=== PATIENT | female | born 1980 | race Caucasian/White ===

== ENCOUNTER 2020-07-23 10:56 | Outpatient (CLI) | payer BC ==
--- NOTE | 2020-07-23 11:58 | US ---
EXAMINATION TYPE: US OB >= 14 wk fetus DATE OF EXAM: 07/23/2020 COMPARISON: None CLINICAL HISTORY: EFW/CELESTINO TECHNIQUE: Transabdominal (TA) GESTATIONAL AGE / DATING Physician Established: (39 weeks/0 days) EDC: 07/30/2020 Dates by Current Scan: (39 weeks/4 days) EDC: 07/26/2020 SURVEY IUP: Single PLACENTA: Anterior/ fundal PREVIA: No Previa CELESTINO: 18 cm Normal CERVICAL LENGTH (transabdominal: norm > 3.0cm): 3 cm BIOMETRY PRESENTATION: Vertex LIE: Longitudinal BPD: 9.4 cm 38weeks / 1 days HC: 35.7 cm 39 weeks / 4 days AC: 35.94 cm 39 weeks / 6 days FL: 7.9 cm 40 weeks / 3 days ESTIMATED WEIGHT IN GRAMS: 3944 grams ESTIMATED WEIGHT IN LBS/OZ: 8 lbs. 11 oz. WEIGHT PERCENTAGE BASED ON ESTABLISHED DATES: 88% HC/AC: 1 Normal FL/AC: 22% Normal HEART RATE: 152 bpm RHYTHM: Normal Viable IUP, measurements consistent with dates. IMPRESSION: Limited survey. Single viable intrauterine corresponding to ultrasound age 39 weeks 4 days with estimated date of delivery 07/26/2020, normal amniotic fluid index
== END 2020-07-23 11:52 | disposition home or self-care (01) ==
LOC: FBPOP 10:56
PROVIDERS: ATTEND Obstetrics & Gynecology
DX: O36.63X0 Maternal care for excessive fetal growth, third trimester, not applicable or unspecified (principal); O09.513 Supervision of elderly primigravida, third trimester; Z3A.39 39 weeks gestation of pregnancy
CPT/HCPCS: 59025; 76805

== ENCOUNTER 2020-07-24 06:00 | Inpatient (IN) | payer BC ==
[2020-07-24] MEDS ORDERED: TERBUTALINE 1 MG/ML VIAL SQ PRN (06:35)
[2020-07-24] MEDS ORDERED: METHYLERGONOVINE 0.2 MG/ML 1 ML AMP IM PRN (06:35)
[2020-07-24] MEDS ORDERED: OXYTOCIN 10 UNIT/ML 1 ML VIAL IM PRN (06:35)
[2020-07-24] MEDS ORDERED: LIDOCAINE 0.5% (PF) 5 MG/ML (50 ML SDV) SQ PRN (06:35)
[2020-07-24] MEDS ORDERED: CARBOPROST TROMETHAMINE 250 MCG/ML 1 ML AMP IM PRN (06:35)
[2020-07-24] MEDS ORDERED: OXYTOCIN 30 UNITS/500 ML NS 30 UNIT in SALINE 1 500ML.BAG IV SCH (06:45)
[2020-07-24 06:55] LABS: Basophils % (A) 1 %; Eosinophils # (A) 0.1 k/uL (0-0.7); Eosinophils % (A) 1 %; HCT 38.6 % (34.0-46.0); HGB 13.1 gm/dL (11.4-16.0); Lymphocytes # (A) 1.7 k/uL (1.0-4.8); Lymphocytes % (A) 20 %; MCH 31.3 pg (25.0-35.0); MCV 92.2 fL (80.0-100.0); Mean Platelet Volume 6.8; Monocytes # (A) 0.5 k/uL (0-1.0); Monocytes % (A) 5 %; Neutrophils # (A) 6.3 k/uL (1.3-7.7); Neutrophils % (A) 72 %; Platelet Count 254 k/uL (150-450); RBC 4.18 m/uL (3.80-5.40); WBC 8.8 k/uL (3.8-10.6)
[2020-07-24] MEDS: LACTATED RINGERS 1,000 ML IV SCH ×3 (06:55→15:49)
[2020-07-24] MEDS ORDERED: ROPIVACAINE 5MG/ML 20ML VIAL ONE (10:02)
[2020-07-24] MEDS ORDERED: SODIUM CHLORIDE 0.9% 100 ML BAG ONE (10:02)
[2020-07-24] MEDS ORDERED: fentaNYL (PF) 50 MCG/ML 5 ML AMP ONE (10:02)
[2020-07-24] MEDS ORDERED: ROPIVACAINE 100 MG, fentaNYL (PF) 200 MCG in SODIUM CHLORIDE 0.9% 76 ML EPIDURAL ONE (10:22)
[2020-07-24] MEDS ORDERED: BENZOCAINE/MENTHOL SPRAY 1 GM/SPRAY AEROSOL TOPICAL PRN (12:55)
[2020-07-24] MEDS ORDERED: ZOLPIDEM 5 MG TAB PO PRN (12:55)
[2020-07-24] MEDS ORDERED: IBUPROFEN 600 MG TAB PO PRN (12:55)
[2020-07-24] MEDS ORDERED: diphenhydrAMINE 25 MG CAP PO PRN (12:55)
[2020-07-24] MEDS ORDERED: ACETAMINOPHEN TAB 325 MG TAB PO PRN (12:55)
[2020-07-24] MEDS ORDERED: diphenhydrAMINE 50 MG CAP PO PRN (12:55)
[2020-07-24] MEDS ORDERED: SIMETHICONE 80 MG CHEWABLE PO PRN (12:55)
[2020-07-24] MEDS ORDERED: diphenhydrAMINE 50 MG/ML 1 ML VIAL IVP PRN ×2 (12:55)
[2020-07-24] MEDS ORDERED: LANOLIN CREAM 5 GM TUBE TOPICAL PRN (12:55)
[2020-07-24] MEDS ORDERED: HYDROCORTISONE 2.5% RECTAL CREAM 30 GM TUBE RECTAL PRN (12:55)
[2020-07-24] MEDS ORDERED: HYDROcodone/APAP 5-325MG 1 EACH TAB PO PRN (12:55)
--- NOTE | 2020-07-24 12:59 | P.HPOB ---
History of Present Illness H&P Date: 07/24/20 Chief Complaint: Intrauterine at term: Induction of labor Willa is a 39-year-old at 39 weeks gestation who ryes for induction of labor. Her course has been, complicated by advanced maternal age for which she has received nonstress tests and's approximately 32 weeks. Pertinent labs include O- blood type Rh and it was negative, rubella was immune, hepatitis B surface antigen and HIV and RPR were all negative as was groupie strep. There was concern over macrosomia she is measuring large for the last few weeks, however, ultrasound yesterday revealed estimated weight of 3900 g which is well under the 4500 g cut off for section therefore we are progressing with induction of labor with Pitocin augmentation and epidural for analgesia. All questions are answered for her and risks and benefits have been reviewed. Her course otherwise has been generally unremarkable she was dated by an early ultrasound and has been followed very closely throughout the . She did receive [place] gamma approximately 28 weeks. It should be noted that there is a category 1 tracing noted prior to artificial rupture membranes and clear fluid is noted. She is dilated to 3/2 cm 60% effaced and -3 station. Past Medical History Past Medical History: No Reported History History of Any Multi-Drug Resistant Organisms: None Reported Additional Past Surgical History / Comment(s): Right ACL repair Past Anesthesia/Blood Transfusion Reactions: No Reported Reaction Past Psychological History: No Psychological Hx Reported Smoking Status: Never smoker Past Alcohol Use History: None Reported Past Drug Use History: None Reported - Past Family History Mother Family Medical History: Hypertension, Rheumatoid Arthritis (RA) Medications and Allergies Home Medications Medication Instructions Recorded Confirmed Type Pnv No.95/Ferrous Fum/Folic AC 1 tab PO DAILY 07/24/20 07/24/20 History [ Multivitamin Tablet] Allergies Allergy/AdvReac Type Severity Reaction Status Date / Time No Known Allergies Allergy Verified 07/24/20 06:35 Exam Osteopathic Statement: *. No significant issues noted on an osteopathic structural exam other than those noted in the History and Physical/Consult. Vital Signs Temp Pulse Resp BP Pulse Ox 07/24/20 06:34 96.7 F L 99 16 120/65 99 Intake and Output 07/23/20 07/24/20 07/24/20 22:59 06:59 14:59 Other: Weight 133.81 kg - OBG Physical Exam Breast: both: normal (no masses) Abdomen: Obese Abdomen: bowel sounds normal, no diffuse tenderness, no bruit present, no guarding noted, no hepatomegaly, no splenomegaly, no mass Vulva: both: normal Vagina: normal moisture, no discharge Cervix: no lesion, no discharge Uterus: normal size, normal contour Adnexa: both: normal Anus/Rectum: normal perianal skin, no rectal mass, no hemorrhoids, heme negative Results Result Diagrams: 07/24/20 06:45
[2020-07-24] MEDS ORDERED: OXYTOCIN 20 UNITS/1000 ML NS 1,000 ML IV SCH (13:00)
--- NOTE | 2020-07-24 13:01 | P.PROBDLV ---
Vaginal Delivery Note - . Vaginal Delivery Note: Willa progress to complete and pushing with spontaneous vaginal delivery of a viable female over a second-degree midline perineal laceration. Following delivery of the head from left occiput anterior position anterior posterior shoulders were easily delivered with gentle downward and upward traction followed by the remainder the baby. Mouth and nares were then bulb suctioned and baby was placed on mother's abdomen where the umbilical cord was clamped and cut in the usual fashion. Placenta was then delivered intact and Pitocin was added to the IV. Nursery personnel was present and did assume care. Second-degree perineal laceration was then noted and repaired with 3-0 Vicryl following 1% Xylocaine for analgesia. Digital rectal exam was performed due to difficulty distinction held for down the laceration went due to body habitus. No issues with rectum are noted. There is also noted a left vaginal wall laceration that was bleeding therefore it was reapproximated with 3-0 Vicryl following 1% Xylocaine for analgesia and once hemostasis was obtained a red rubber straight catheter was used to verify no urethral involvement as it was proximal to the urethra. scores were 9 and 9 at one and 5 minutes respectively and the weight was 8 lbs. 7 oz. Both mother and baby are currently stable following delivery.
[2020-07-24] MEDS ORDERED: Rhogam IMMUNE GLOBULIN 1,500 UNIT/1 ML IM ONE (17:25)
[2020-07-24] MEDS: SENNOSIDES-DOCUSATE SODIUM 1 EACH TAB PO SCH (20:10)
[2020-07-24 23:50] VITALS: TEMP 98.2
[2020-07-25 06:23] LABS: Basophils % (A) 1 %; Eosinophils # (A) 0.1 k/uL (0-0.7); Eosinophils % (A) 1 %; HCT 33.3 % (34.0-46.0); Lymphocytes % (A) 21 %; MCH 31.2 pg (25.0-35.0); MCHC 33.2 g/dL (31.0-37.0); Monocytes # (A) 0.5 k/uL (0-1.0); Monocytes % (A) 5 %; Neutrophils # (A) 6.9 k/uL (1.3-7.7); Neutrophils % (A) 72 %; Platelet Count 205 k/uL (150-450); RBC 3.54 m/uL (3.80-5.40); RDW 14.2 % (11.5-15.5); WBC 9.6 k/uL (3.8-10.6)
[2020-07-25 08:10] VITALS: BP 106/70; PULSE 87; RESP 16
[2020-07-25] MEDS: SENNOSIDES-DOCUSATE SODIUM 1 EACH TAB PO SCH (08:10)
--- NOTE | 2020-07-25 08:26 | P.DS ---
Providers Date of admission: 07/24/20 06:28 Expected date of discharge: 07/25/20 Attending physician: Nehemias Jacobson Primary care physician: Stated None Hospital Course: Willa is doing very well post day 1. She is ambulating, voiding and tolerating her diet. She voices no complaint. Vital signs are stable and afebrile. Heart regular, lungs clear, extremities without pain. Abdomen soft, uterus firm, lochia is reported be light. Prescription for a breast pump is provided. She requests no pain medication. She will follow up with me in 6 weeks. Discharge instructions were thoroughly reviewed and all questions were answered for her prior to her discharge. She is stable for discharge this time. Patient Condition at Discharge: Good Plan - Discharge Summary New Discharge Prescriptions: No Action Pnv No.95/Ferrous Fum/Folic AC [ Multivitamin Tablet] 1 tab PO DAILY Discharge Medication List Pnv No.95/Ferrous Fum/Folic AC [ Multivitamin Tablet] 1 tab PO DAILY 07/24/20 [History] Follow up Appointment(s)/Referral(s): Nehemias Jacobson DO [Doctor of Osteopathic Medicine] - 6 Weeks Activity/Diet/Wound Care/Special Instructions: Limit stairs and driving, and pelvic rest. If any high temperatures, heavy bleeding, or severe pain call my office Discharge Disposition: HOME SELF-CARE
== END 2020-07-25 14:45 | disposition home or self-care (01) | DRG 806 ==
LOC: 4FBP 06:28
PROVIDERS: ADMIT Obstetrics & Gynecology; ATTEND Obstetrics & Gynecology
PROC: 3E0334Z Introduction of Serum, Toxoid and Vaccine into Peripheral Vein, Percutaneous Approach (ICD-10-PCS; principal; 2020-07-24)
PROC: 0KQM0ZZ Repair Perineum Muscle, Open Approach (ICD-10-PCS; principal; 2020-07-24)
PROC: 00HU33Z Insertion of Infusion Device into Spinal Canal, Percutaneous Approach (ICD-10-PCS; principal; 2020-07-24)
PROC: 3E033VJ Introduction of Other Hormone into Peripheral Vein, Percutaneous Approach (ICD-10-PCS; principal; 2020-07-24)
PROC: 3E0R3NZ Introduction of Analgesics, Hypnotics, Sedatives into Spinal Canal, Percutaneous Approach (ICD-10-PCS; principal; 2020-07-24)
PROC: 10E0XZZ Delivery of Products of Conception, External Approach (ICD-10-PCS; principal; 2020-07-24)
DX: O70.1 Second degree perineal laceration during delivery (principal); O36.0130 Maternal care for anti-D [Rh] antibodies, third trimester, not applicable or unspecified; Z37.0 Single live birth; Z3A.39 39 weeks gestation of pregnancy; Z82.49 Family history of ischemic heart disease and other diseases of the circulatory system; Z82.61 Family history of arthritis; O99.214 Obesity complicating childbirth; E66.9 Obesity, unspecified
CPT/HCPCS: 85025; 85461; 86850; 86870; 86880; 86900; 86901